=== PATIENT | female | born 1995 | race African-American/Black ===

== ENCOUNTER 2019-04-16 12:12 | Emergency (ER) | payer MEDICARE, OTHER ==
[~2019-04-16] VITALS: Ht 154.9 cm; Wt 56.7 kg
--- OUTSIDE RECORDS SUMMARY | 2019-04-16 12:15 | XMS REPORT ---
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 Allergies, Adverse Reactions, Alerts This patient has no known allergies or adverse reactions. Medications This patient has no known medications. Results Test Description Test Time Test Comments Text Results Atomic Results Result Comments CHEST 2 VIEWS [place] [address] Patient Name: ALEKSEY HORTON MR #: [id number] : 1995 Age/Sex: 21/F Req #: [id number] [facility] Physician: Ordered by: СЕРГЕЙ RAY MD Report #: [id number] Location: ER Room/Bed: Procedure: [id number] DX/CHEST 2 VIEWS Exam Date: Exam Time: REPORT STATUS: Signed PROCEDURE: CHEST 2 VIEWS TECHNIQUE: PA and lateral chest INDICATION: Cough; Atkins at buttocks. COMPARISON: None. FINDINGS: Lungs are clear and symmetrically inflated. Normal heart size and mediastinal contour. Intact skeleton. CONCLUSION: Normal. Dictated by: Shannon Craven M.D. on 02/26/2017 at 10:30 Electronically approved by: Shannon Craven M.D. on 02/26/2017 at 10:30 Dictated By: SHANNON CRAVEN MD [id number] Transcribed By: MANOLO on 02/26/17 1030 COPY TO: СЕРГЕЙ RAY MD
== END 2019-04-16 14:46 | disposition home or self-care (01) ==
LOC: ER 12:12
DX: N76.4 Abscess of vulva (principal)
CPT/HCPCS: 99283